=== PATIENT | male | born 1970 | race Caucasian/White ===

== ENCOUNTER 2023-07-14 23:55 | Emergency (ER) | payer SELFPAY ==
[2023-07-15 04:01] LABS: #Basophils 0.1 thou/uL (0.0-0.2); #Eosinphils 0.4 thou/uL (0.0-0.7); #Monocytes 0.5 thou/uL (0.11-0.59); %Basophils 1.2 % (0.0-1.0); %Eosinophils 4.7 % (0.0-10.0); %Lymphocytes 33.2 % (21.0-51.0); %Monocytes 5.5 % (0.0-10.0); %Neutrophils 55.2 % (42.0-75.0); Hematocrit 57.7 % (42.0-52.0); Hemoglobin 20.3 g/dL (14.0-18.0); Mean Corpuscular HGB CONC 35.2 g/dL (32.0-36.0); Mean Corpuscular Hemoglobin 33.1 pg (27.0-31.0); Mean Platelet Volume 11.4 fL (7.4-10.4); Platelet Count 213 10x3/uL (130-400); RBC Distribution Width 13.2 % (11.5-14.5); Red Blood Cell (RBC) Count 6.14 mill/uL (4.70-6.10)
[2023-07-15 04:35] LABS: ALT (SGPT) 25 U/L (8-55); AST (SGOT) 33 U/L (5-34); Alkaline Phosphatase 84 U/L (40-110); Anion Gap 17 mmol/L (10-20); BUN (Urea Nitrogen) 13 mg/dL (8.4-25.7); Bilirubin, Total 0.6 mg/dL (0.2-1.2); Calc. Creatinine Clearance 0 mL/min (70-130); Calcium 10.5 mg/dL (7.8-10.44); Carbon Dioxide 23 mmol/L (22-29); Chloride 99 mmol/L (98-107); Estimated GFR 103; Globulin 4.8 g/dL (2.4-3.5); Glucose 91 mg/dL (70-105); Lipase 43 U/L (8-78); Potassium 4.2 mmol/L (3.5-5.1); Protein, Total 9.8 g/dL (6.0-8.3); Sodium 135 mmol/L (136-145)
[2023-07-15 04:41] LABS: Bacteria/HPF None Seen HPF (None Seen); Bilirubin Negative (Negative); Blood, Urine Negative (Negative); CAUTI Indications for Culture Pelvic or flank pain; Clarity Clear (Clear); Glucose, Urine (Dipstick) Normal (Negative); Ketone, Urine Negative (Negative); Leukocyte Negative Leu/uL (Negative); Nitrite Negative (Negative); Protein, Urine (Dipstick) Negative (Neg-Trace); RBC/HPF None Seen HPF (0-3); Specific Gravity, Urine 1.012 (1.002-1.036); Squamous Epithelial 0-3 HPF (0-3); Urobilinogen Normal mg/dL (Less than 2); WBC/HPF 0-3 HPF (0-3); pH, Urine 5.5 (5.0-9.0)
[2023-07-15 04:45] LABS: Urine Culture Reflex No No
[2023-07-15] MEDS ORDERED: Iopamidol-370 76% 500 ML MDV (1 ML CHARGE) ONE (09:43)
== END 2023-07-15 05:58 | disposition home or self-care (01) ==
LOC: ERS 23:55
DX: K62.89 Other specified diseases of anus and rectum (principal); K64.9 Unspecified hemorrhoids; D75.1 Secondary polycythemia; I71.33 Infrarenal abdominal aortic aneurysm, ruptured; I10 Essential (primary) hypertension; F17.210 Nicotine dependence, cigarettes, uncomplicated
CPT/HCPCS: 74177; 80053; 81001; 83690; 85025; Q9967

== ENCOUNTER 2023-10-24 11:59 | Inpatient (IN) | payer SELFPAY ==
[~2023-10-24 11:59] MED LIST: Iopamidol-370 76% 500 ML MDV (1 ML CHARGE) ONE
[2023-10-24 12:21] LABS: #Basophils 0.1 thou/uL (0.0-0.2); #Eosinphils 0.4 thou/uL (0.0-0.7); #Monocytes 0.5 thou/uL (0.11-0.59); #Neutrophils 5.1 thou/uL (1.40-6.50); %Basophils 1.3 % (0.0-1.0); %Lymphocytes 29.7 % (21.0-51.0); %Monocytes 5.7 % (0.0-10.0); Hemoglobin 19.1 g/dL (14.0-18.0); Mean Corpuscular HGB CONC 34.1 g/dL (32.0-36.0); Mean Corpuscular Hemoglobin 32.6 pg (27.0-31.0); Mean Corpuscular Volume 95.7 fl (78.0-98.0); Mean Platelet Volume 11.3 fL (7.4-10.4); Platelet Count 172 10x3/uL (130-400); RBC Distribution Width 13.4 % (11.5-14.5); Red Blood Cell (RBC) Count 5.85 mill/uL (4.70-6.10); White Blood Cell (WBC) Count 8.8 10x3/uL (4.8-10.8)
[2023-10-24 12:46] LABS: ALT (SGPT) 27 U/L (8-55); AST (SGOT) 30 U/L (5-34); Albumin 4.5 g/dL (3.5-5.0); Alkaline Phosphatase 93 U/L (40-110); Anion Gap 12 mmol/L (10-20); BUN (Urea Nitrogen) 18 mg/dL (8.4-25.7); Bilirubin, Total 0.7 mg/dL (0.2-1.2); Calc. Creatinine Clearance 0 mL/min (70-130); Calcium 10.4 mg/dL (7.8-10.44); Carbon Dioxide 26 mmol/L (22-29); Chloride 103 mmol/L (98-107); Estimated GFR 103; Globulin 4.4 g/dL (2.4-3.5); Glucose 97 mg/dL (70-105); Lipase 44 U/L (8-78); Potassium 4.5 mmol/L (3.5-5.1); Protein, Total 8.9 g/dL (6.0-8.3); Sodium 136 mmol/L (136-145)
[2023-10-24 12:52] LABS: Prothrombin Time 12.9 sec (12.0-14.7)
[2023-10-24 12:53] LABS: PTT 35.8 sec (22.9-36.1)
[2023-10-24 13:16] LABS: CRP (Inflammatory) Less than 0.50 mg/dL (= or < 0.5); Magnesium 1.8 mg/dL (1.6-2.6)
[2023-10-24 13:39] LABS: Troponin I Less than 0.010 ng/mL (< 0.028)
[2023-10-24 14:37] LABS: Bacteria/HPF None Seen HPF (None Seen); Bilirubin Negative (Negative); Blood, Urine Negative (Negative); CAUTI Indications for Culture Pelvic or flank pain; Clarity Clear (Clear); Glucose, Urine (Dipstick) Normal (Negative); Ketone, Urine Negative (Negative); Leukocyte Negative Leu/uL (Negative); Nitrite Negative (Negative); Protein, Urine (Dipstick) Negative (Neg-Trace); RBC/HPF 0-3 HPF (0-3); Squamous Epithelial 0-3 HPF (0-3); Urobilinogen Normal mg/dL (Less than 2); WBC/HPF 0-3 HPF (0-3)
[2023-10-24 14:39] LABS: Specific Gravity, Urine 1.057 (1.002-1.036)
[2023-10-24 14:41] LABS: Urine Culture Reflex No No
[2023-10-24] MEDS: Sodium Chloride 0.9% 1,000 ML IV SCH (18:27)
[2023-10-24] MEDS: GoLYTELY 4,000 ml Bottle PO SCH (20:37)
[2023-10-25] MEDS: GoLYTELY 4,000 ml Bottle PO SCH (02:14)
[2023-10-25 05:36] LABS: #Basophils 0.1 thou/uL (0.0-0.2); #Eosinphils 0.3 thou/uL (0.0-0.7); #Monocytes 0.5 thou/uL (0.11-0.59); #Neutrophils 4.7 thou/uL (1.40-6.50); %Basophils 1.1 % (0.0-1.0); %Lymphocytes 29.8 % (21.0-51.0); %Monocytes 6.6 % (0.0-10.0); %Neutrophils 58.3 % (42.0-75.0); Hematocrit 49.4 % (42.0-52.0); Mean Corpuscular HGB CONC 34.4 g/dL (32.0-36.0); Mean Corpuscular Hemoglobin 32.8 pg (27.0-31.0); Mean Corpuscular Volume 95.4 fl (78.0-98.0); Mean Platelet Volume 12.2 fL (7.4-10.4); Platelet Count 141 10x3/uL (130-400); RBC Distribution Width 13.3 % (11.5-14.5); Red Blood Cell (RBC) Count 5.18 mill/uL (4.70-6.10); White Blood Cell (WBC) Count 8.1 10x3/uL (4.8-10.8)
[2023-10-25 06:23] LABS: Anion Gap 14 mmol/L (10-20); BUN (Urea Nitrogen) 15 mg/dL (8.4-25.7); Calc. Creatinine Clearance 106 mL/min (70-130); Calcium 9.6 mg/dL (7.8-10.44); Carbon Dioxide 25 mmol/L (22-29); Chloride 104 mmol/L (98-107); Estimated GFR 105; Glucose 91 mg/dL (70-105); Sodium 139 mmol/L (136-145)
[2023-10-25] MEDS ORDERED: PROPOFOL 20 ML ONE ×2 (08:45→08:55)
[2023-10-25] MEDS ORDERED: Promethazine HCl 25 MG/ML VIAL IM PRN (09:04)
[2023-10-25] MEDS ORDERED: Ondansetron HCl/PF 4 MG/2 ML Vial IVP PRN (09:04)
[2023-10-25 09:13] VITALS: BMI 20.9
[2023-10-25] MEDS ORDERED: Ondansetron PF 4 MG/2 ML Vial IVP PRN (13:27)
[2023-10-25] MEDS ORDERED: Sodium Chloride 0.65% Nasal 44 ML BOT EA NARE PRN (13:27)
[2023-10-25] MEDS ORDERED: Moisturizing Cream (Eucerin) 113 GM JAR TOP PRN (13:27)
[2023-10-25] MEDS ORDERED: Loratadine 10 MG TAB PO PRN (13:27)
[2023-10-25] MEDS ORDERED: Ondansetron ODT 4 MG TAB PO PRN (13:27)
[2023-10-25] MEDS ORDERED: Benzonatate 100 MG CAP PO PRN (13:27)
[2023-10-25] MEDS ORDERED: diphenhydrAMINE 25 MG CAP PO PRN (13:27)
[2023-10-25] MEDS ORDERED: Calcium Carbonate 500 MG ChewTAB PO PRN (13:27)
[2023-10-25] MEDS ORDERED: Artificial Tear Sol 15 ML BOT EA EYE PRN (13:27)
[2023-10-25] MEDS: Sodium Chloride 0.9% 1,000 ML IV SCH (16:25)
[2023-10-26] MEDS: Acetaminophen 500 MG TAB PO PRN (08:33)
[2023-10-27] MEDS: Acetaminophen 500 MG TAB PO PRN (19:50)
[2023-10-28] MEDS: Acetaminophen 500 MG TAB PO PRN ×3 (02:57→23:21)
[2023-10-29] MEDS ORDERED: Fleet Saline Enema 133 ML BOT PR SCH (08:00)
[2023-10-29] MEDS ORDERED: Lisinopril 20 MG TAB PO SCH (09:00)
[2023-10-29] MEDS ORDERED: PROPOFOL 40 ML ONE (10:44)
[2023-10-29] MEDS ORDERED: Milk Of Magnesia 30 ML UDCUP PO PRN (14:31)
[2023-10-29] MEDS: Acetaminophen 500 MG TAB PO PRN (15:59)
[2023-10-30] MEDS ORDERED: Melatonin 3 MG TAB PO PRN (01:40)
[2023-10-30] MEDS: Acetaminophen 500 MG TAB PO PRN (02:12)
[2023-10-30 10:17] VITALS: TEMP 97.7
[2023-10-30] MEDS ORDERED: PROPOFOL 20 ML ONE (10:19)
[2023-10-30] MEDS ORDERED: Lidocaine 2% PF 5 ML VIAL ONE (10:19)
[2023-10-30] MEDS ORDERED: EPINEPHrine 1 MG/ML VIAL ONE (12:04)
[2023-10-30] MEDS ORDERED: Bupivacaine 0.25% HCL 30 ML VIAL ONE (12:04)
[2023-10-30] MEDS ORDERED: fentaNYL PF 100 MCG/2 ML SYRINGE ONE (12:05)
[2023-10-30] MEDS ORDERED: Sodium Chloride 0.9% 100 ML ONE (12:12)
[2023-10-30] MEDS ORDERED: CEFAZOLIN 2 GM VIAL ONE (12:12)
[2023-10-30] MEDS ORDERED: Ondansetron PF 4 MG/2 ML Vial ONE (12:38)
[2023-10-30] MEDS ORDERED: Dexamethasone 4 mg/ml Vial ONE (12:38)
[2023-10-30] MEDS ORDERED: Glycopyrrolate 0.2 MG/ML 5 ML SYRINGE ONE (12:39)
[2023-10-30 14:21] VITALS: BP 145/99
== END 2023-10-30 17:29 | disposition home or self-care (01) | DRG 357 ==
LOC: ERS 11:59 → MSONC 15:31 → OBSVTOIN 10-25 11:55
PROVIDERS: ADMIT Internal Medicine; ATTEND Family Medicine
PROC: 0DBP8ZX Excision of Rectum, Via Natural or Artificial Opening Endoscopic, Diagnostic (ICD-10-PCS; 2023-10-29)
PROC: 0JH60WZ Insertion of Totally Implantable Vascular Access Device into Chest Subcutaneous Tissue and Fascia, Open Approach (ICD-10-PCS; principal; 2023-10-30)
PROC: 02HV33Z Insertion of Infusion Device into Superior Vena Cava, Percutaneous Approach (ICD-10-PCS; 2023-10-30)
PROC: B548ZZA Ultrasonography of Superior Vena Cava, Guidance (ICD-10-PCS; 2023-10-30)
PROC: 0DBN8ZX Excision of Sigmoid Colon, Via Natural or Artificial Opening Endoscopic, Diagnostic (ICD-10-PCS; 2023-10-30)
DX: C19 Malignant neoplasm of rectosigmoid junction (principal); C78.7 Secondary malignant neoplasm of liver and intrahepatic bile duct; C78.89 Secondary malignant neoplasm of other digestive organs; I10 Essential (primary) hypertension; F17.210 Nicotine dependence, cigarettes, uncomplicated; R62.7 Adult failure to thrive; K59.00 Constipation, unspecified; D75.1 Secondary polycythemia; I71.40 Abdominal aortic aneurysm, without rupture, unspecified; K64.8 Other hemorrhoids; Z68.20 Body mass index [BMI] 20.0-20.9, adult; Z98.890 Other specified postprocedural states
CPT/HCPCS: 36415; 70470; 71045; 71260; 74174; 80048; 80053; 81001; 82274; 82378; 83605; 83690; 83735; 84484; 85025; 85610; 85730; 86140; 86850; 86900; 86901; 88305; 93005; C1788; G0378; J0171; J0665; J1100; J1642; J2001; J2405; J2704; J3490; J7050; Q9967

== ENCOUNTER 2023-12-11 09:20 | Day surgery (SDC) | payer OTHER, SELFPAY ==
[~2023-12-11 09:20] MED LIST changes: +Bevacizumab 330 MG in Sodium Chloride 0.9% 100 ML IVPB SCH; +DEXTROSE 5% IVPB SCH; +Dexamethasone 10 MG in Sodium Chloride 0.9% 50 ML IVPB SCH; +FLUOROURACIL IVPB SCH; +Fosaprepitant Dimeglumine 150 MG in 0.9 % Sodium Chloride 145 ML IVPB SCH; -Iopamidol-370 76% 500 ML MDV (1 ML CHARGE) ONE; +LEUCOVORIN CALCIUM IVPB SCH; +OXALIPLATIN IVPB SCH; +SODIUM CHLORIDE 0.9% IVPB SCH; +WATER IVPB SCH
[2023-12-11 10:19] VITALS: BP 120/78; TEMP 98.1
[2023-12-11] MEDS ORDERED: PALONOSETRON HCL 0.05 MG/ML 5 ML VIAL ONE (11:21)
[2023-12-11] MEDS: PALONOSETRON HCL 0.05 MG/ML 5 ML VIAL IVP SCH (11:22)
[2023-12-11] MEDS: Fosaprepitant Dimeglumine 150 MG in 0.9 % Sodium Chloride 145 ML IVPB SCH (11:23)
[2023-12-11] MEDS: BEVACIZUMAB IVPB SCH (12:15)
[2023-12-11] MEDS: SODIUM CHLORIDE 0.9% IVPB SCH (12:15)
[2023-12-11] MEDS: Leucovorin Calcium 350 MG in Sodium Chloride 0.9% 50 ML IVPB SCH (16:11)
[2023-12-11] MEDS: DEXTROSE 5% IVPB SCH (16:14)
[2023-12-11] MEDS: FLUOROURACIL IVPB SCH (16:14)
[2023-12-11] MEDS: WATER IVPB SCH (16:14)
== END 2023-12-11 17:52 | disposition home or self-care (01) ==
LOC: ONC/OP 09:20
PROVIDERS: ATTEND Internal Medicine
DX: C20 Malignant neoplasm of rectum (principal)
CPT/HCPCS: 96367; 96375; 96413; 96415; 96416; 96417; J0640; J1100; J1453; J2469; J3490; J7070; J9035; J9190; J9263

== ENCOUNTER 2023-12-25 08:44 | Day surgery (SDC) | payer OTHER, SELFPAY ==
[2023-12-25 09:37] VITALS: BP 129/87; TEMP 98.6
[2023-12-25] MEDS ORDERED: PALONOSETRON HCL 0.05 MG/ML 5 ML VIAL ONE (10:15)
[2023-12-25] MEDS: PALONOSETRON HCL 0.05 MG/ML 5 ML VIAL IVP SCH (10:23)
[2023-12-25] MEDS: Fosaprepitant Dimeglumine 150 MG in 0.9 % Sodium Chloride 145 ML IVPB SCH (10:24)
[2023-12-25] MEDS: BEVACIZUMAB IVPB SCH (11:35)
[2023-12-25] MEDS: SODIUM CHLORIDE 0.9% IVPB SCH (11:35)
[2023-12-25] MEDS: Leucovorin Calcium 350 MG in Sodium Chloride 0.9% 50 ML IVPB SCH (12:22)
[2023-12-25] MEDS: DEXTROSE 5% IVPB SCH (12:23)
[2023-12-25] MEDS: FLUOROURACIL IVPB SCH (12:23)
[2023-12-25] MEDS: WATER IVPB SCH (12:23)
== END 2023-12-25 16:22 | disposition home or self-care (01) ==
LOC: ONC/OP 08:44
PROVIDERS: ATTEND Internal Medicine
DX: C20 Malignant neoplasm of rectum (principal)
CPT/HCPCS: 96366; 96413; 96415; 96416; J0640; J1100; J1453; J2469; J3490; J7070; J9035; J9190; J9263